=== PATIENT | female | born 1960 ===

== ENCOUNTER 2020-04-25 16:49 | Emergency (ER) | payer OTHER ==
[~2020-04-25] VITALS: Ht 162.6 cm; Wt 82.2 kg
[2020-04-25 16:58] VITALS: BP 172/87
[2020-04-25] MEDS ORDERED: HYDROcodone/APAP 5/325 TABLET ONE (17:24)
--- NOTE | 2020-04-25 17:28 | NUR ---
PT SLIPPED FELL IN BATH TUB. HURT RIGHT KNEE AND BOTH HIPS. NO DEFORMITY. DENIES HITTING HEAD. WAS WALKING AROUND ALL DAY. PT IN IMAGING
[2020-04-25] MEDS ORDERED: HYDROcodone/APAP 5/325 TABLET PO ONE (17:30)
== END 2020-04-25 18:48 | disposition home or self-care (01) ==
LOC: ED 18:15
DX: S76.012A Strain of muscle, fascia and tendon of left hip, initial encounter (principal); S76.011A Strain of muscle, fascia and tendon of right hip, initial encounter; S83.91XA Sprain of unspecified site of right knee, initial encounter; I10 Essential (primary) hypertension; E11.9 Type 2 diabetes mellitus without complications; E78.5 Hyperlipidemia, unspecified; X58.XXXA Exposure to other specified factors, initial encounter; Y93.89 Activity, other specified; Y92.89 Other specified places as the place of occurrence of the external cause; Y99.8 Other external cause status
CPT/HCPCS: 73523; 99284